=== PATIENT | male | born 1980 | race Caucasian/White ===

== ENCOUNTER 2021-11-27 00:40 | Emergency (ER) | payer SELFPAY ==
--- NOTE | ~2021-11-27 | XR_ITS ---
EXAMINATION: XR chest 2V DATE: 11/27/2021 01:21 INDICATION: Chest pain TECHNIQUE: PA and lateral views of the chest are obtained. COMPARISON: None available FINDINGS: The lungs are free of acute opacities. There is no pleural effusion or pneumothorax. The ca rdiomediastinal silhouette is normal. There is mild anterior wedging of multiple midthoracic vertebra l bodies, likely physiologic. A healed left sixth rib fracture is noted. IMPRESSION: 1. No acute cardiopulmonary abnormality. Reviewed, dictated and finalized at location A.
--- NOTE | 2021-11-27 00:47 | ECG_ITS ---
Measurements Intervals [place] Rate: 76 P: 77 MN: 133 QRS: 62 QRSD: 89 T: 59 QT: 362 QTc: 409 Interpretive Statements SINUS RHYTHM POSSIBLE LEFT ATRIAL ENLARGEMENT BORDERLINE ECG NO PREVIOUS ECG AVAILABLE FOR COMPARISON Electronically Signed On 11-27-2021 15:47:08 CDT by Rodolfo Dewitt M.D.
[2021-11-27 00:48] VITALS: BP 155/89; PULSE 75; RESP 19; TEMP 36.4; O2SAT 100
--- NOTE | 2021-11-27 00:54 | ED.CHESTPAIN ---
HPI - Chest Pain General Chief Complaint: Chest Pain Stated Complaint: chest pain Time Seen by Provider: 11/27/21 00:50 Source: patient Mode of arrival: ambulatory Limitations: no limitations History of Present Illness HPI narrative: 41-year-old male presents emergency room complaining of pain to the left side of his chest. He points to the left upper area of the chest where it hurts. States is a very sharp pain. Hurts when he moves or try to take a deep breath. States it started on Thursday, progressively worse. He has had a mild cough. He is not vaccinated for Covid. He states he has had outpatient tests which were negative. He is a smoker for 28 years. His father at age 50 and had a myocardial infarction. Patient does drink alcohol. He states he was out riding his 4 tate this weekend. However he denies any trauma or injury to his chest. No radiation of pain. Related Data Allergies Allergy/AdvReac Type Severity Reaction Status Date / Time No Known Allergies Allergy Verified 11/27/21 00:51 Review of Systems Review of Systems: CONSTITUTIONAL: Denies fever, chills, or sweats. EYES: Denies visual changes, redness, or discharge. ENT: Denies rhinorrhea, congestion, sore throat, or otalgia. CARDIOVASCULAR: Sharp left upper chest wall pain. No palpitations. No edema RESPIRATORY: Denies cough or dyspnea. GASTROINTESTINAL: Denies abdominal pain, nausea, vomiting, or diarrhea. GENITOURINARY: Denies dysuria or hematuria. SKIN: Denies rash or itching. MUSCULOSKELETAL: Denies back pain, joint pain, or myalgia. NEUROLOGIC: Denies headache, numbness, or weakness. PSYCHIATRIC: Denies anxiety or depression. REPLACED BY [facility] Family History Family History Other Heart disease Hypertension Social History Social History Smoking status: Current every day smoker Tobacco type: cigarettes Alcohol intake: current Exam Narrative: APPEARANCE: Well appearing. Mild to moderate distress secondary to pain Head normocephalic and atraumatic. EYES: PERRLA/EOMI, conjunctivae very clear. NOSE: Normal with no drainage EARS:TMS clear Betty Singer, with good light reflex. THROAT: Pharynx clear, no exudate. NECK: Supple. No adenopathy, no masses. RESPIRATORY: Airway patent, respirations nonlabored. Clear to auscultation bilaterally, no rales, rhonchi, wheezing. CARDIOVASCULAR: Regular rate and rhythm without murmurs, rubs, or gallops. Reproducible tenderness to palpation left upper chest wall ABDOMINAL: Soft, nontender, nondistended, no hepatosplenomegaly Musculoskeletal: Moves all extremities. Strength/ROM intact, No edema, No calf tenderness. NEURO: Alert. Cranial nerves II through XII intact. Normal gait. Good coordination. Nonfocal examination. SKIN:: Warm, dry. Normal Color PSYCHIATRIC: Normal affect/mood, normal interaction Course Vital Signs Vital signs: Vital Signs Temperature 97.6 F 11/27/21 00:48 Pulse Rate 75 11/27/21 00:48 Respiratory Rate 19 11/27/21 00:48 Blood Pressure 155/89 H 11/27/21 00:48 Pulse Oximetry 100 11/27/21 00:48 Temperature 97.6 F 11/27/21 00:48 Pulse Rate 75 11/27/21 00:48 Respiratory Rate 19 11/27/21 00:48 Blood Pressure 155/89 H 11/27/21 00:48 Pulse Oximetry 100 11/27/21 00:48 MDM - Chest Pain MDM Narrative Medical decision making narrative: Chest x-ray is unremarkable. No signs of any rib fractures pneumothorax or any other pathology. Laboratory work-up completely normal including a normal troponin. EKG is normal. Patient has reproducible tenderness to palpation left anterior chest wall consistent with chest wall pain. This was all explained to him. We will put him on some nonsteroidal anti-inflammatory medications to assist with this. Differential Diagnosis Differential diagnosis: Likely fracture of rib, atypical chest pain, costochondritis and chest pain
[2021-11-27 01:11] LABS: Basophils Absolute Auto 0.1 K/mm3 (0.0-0.1); Basophils Percent Auto 0.5 % (0.2-1.2); Eosinophils Absolute Auto 0.1 K/mm3 (0-0.3); Eosinophils Percent Auto 0.9 % (0-4.4); Hematocrit 47.6 % (42.0-52.0); Hemoglobin 15.8 g/dL (14.0-18.0); Immature Granulocyte Absolute 0.04 K/mm3 (0.00-0.031); Immature Granulocyte Percent A 0.4 % (0-0.5); Lymphocytes Absolute Auto 2.55 K/mm3 (0.9-3.2); Lymphocytes Percent Auto 25.8 % (18.3-44.2); Mean Corpuscular HGB Conc 33.2 g/dl (32-36); Mean Corpuscular Hemoglobin 32.5 pg (26-34); Mean Corpuscular Volume 97.9 fl (80-100); Mean Platelet Volume 9.4 fl (7.4-10.4); Monocytes Absolute Auto 0.9 K/mm3 (0.1-0.6); Monocytes Percent Auto 9.3 % (2.6-8.5); Neutrophils Absolute Auto 6.3 K/mm3 (1.3-6.7); Neutrophils Percent Auto 63.1 % (45.5-73.1); Platelet Count Result 226 k/mm3 (150-375); Red Blood Count 4.86 M/mm3 (4.6-6.20); Red Cell Distribution Width 14.3 % (11.5-14.5); White Blood Count 9.9 K/mm3 (4.5-10.0)
[2021-11-27 01:15] VITALS: PULSE 68
[2021-11-27 01:23] LABS: Alanine Aminotransferase 10 U/L (4-50); Albumin Level 4.7 g/dL (3.5-5.1); Alkaline Phosphatase 79 U/L (38-126); Anion Gap 7 mmol/L (8-16); Aspartate Amino Transferase 23 U/L (17-59); Bilirubin,Total 0.6 mg/dL (0.2-1.3); Blood Urea Nitrogen 14 mg/dL (9-20); Calcium 9.2 mg/dL (8.4-10.2); Carbon Dioxide 28 mmol/L (22-30); Chloride 104 mmol/L (98-107); Estimated CRCL calculation 89 ml/min; Estimated Glomerular Filt Rate > 60; Glucose 111 mg/dL (65-110); Lipase 69 U/L (23-300); Potassium 4.4 mmol/L (3.4-5.0); Prothrombin Time 12.9 Seconds (11.1-14.7); Sodium 139 mmol/L (137-145)
[2021-11-27 01:24] LABS: Partial Thromboplastin Time 31.4 SECONDS (22.3-36.8)
[2021-11-27 01:34] LABS: Troponin I < 0.012 ng/mL (0.000-0.034)
[2021-11-27] MEDS: ASPIRIN 81 MG CHEWABLE TABLET 324 MG PO (01:36)
[2021-11-27] MEDS: KETOROLAC 30 MG/ML VIAL (*BKC) IV PUSH (01:37)
[2021-11-27 01:42] VITALS: BP 130/73; PULSE 62; RESP 17; O2SAT 98
[2021-11-27 02:05] VITALS: BP 116/80; PULSE 78; RESP 18; O2SAT 98
== END 2021-11-27 02:08 | disposition home or self-care (01) ==
PROVIDERS: Emergency Provider Emergency Medicine
DX: R07.89 Other chest pain (principal); Z28.310 Unvaccinated for COVID-19; F17.210 Nicotine dependence, cigarettes, uncomplicated; R94.31 Abnormal electrocardiogram [ECG] [EKG]
CPT/HCPCS: 36415; 71046; 80053; 83690; 84484; 85025; 85610; 85730; 93005; 96374; 99284; A9270; J1885

== ENCOUNTER 2023-02-02 13:05 | Emergency (ER) | payer OTHER, SELFPAY ==
[2023-02-02 13:15] VITALS: BP 136/71; PULSE 73; RESP 16; TEMP 37.5; O2SAT 100
--- NOTE | 2023-02-02 13:52 | ED.UPPEXIN ---
HPI - Extremity Injury (Upper) General Chief Complaint: Extremity Injury, Upper Stated Complaint: Left Hand Pain Time Seen by Provider: 02/02/23 13:52 Source: patient Mode of arrival: ambulatory Limitations: no limitations History of Present Illness HPI narrative: 42-year-old male presented for complaint of laceration to the palm of the left hand after injury today. He states he struck the hand on a fence. He is not up-to-date on tetanus. He did not cleanse site prior to arrival. He denies decreased range of motion, numbness, tingling, weakness of the hand. Denies pain. Denies medical history but does not have PCP. Smokes 1-2 ppd Related Data Allergies Allergy/AdvReac Type Severity Reaction Status Date / Time No Known Allergies Allergy Verified 02/02/23 13:10 Review of Systems Review of Systems: CONSTITUTIONAL: Denies body aches, fever, chills, or sweats. EYES: Denies visual changes, redness, or discharge. ENT: Denies rhinorrhea, congestion CARDIOVASCULAR: Denies chest pain, palpitations, or edema. RESPIRATORY: Denies cough or dyspnea. GASTROINTESTINAL: Denies abdominal pain, nausea, vomiting, or diarrhea. SKIN: Left hand laceration MUSCULOSKELETAL: Denies back pain, joint pain, or myalgia. NEUROLOGIC: Denies headache, numbness, tingling, or weakness. [facility] Past Medical History Medical History (Updated 02/02/23 @ 14:26 by Jeimy Mcqueen APRN) No pertinent past medical history Family History Family History Other Heart disease Hypertension Social History Social History (Updated 02/02/23 @ 14:03 by Jeimy Mcqueen APRN) Smoking packs per day: 2 Smoking cigarettes per day: 40.0 Smoking status: Current every day smoker Tobacco type: cigarettes Alcohol intake: current Comments At time of signature, I have reviewed and agree with nursing past medical, surgical, social and family history unless otherwise noted. Please see nursing chart for further information. There is no relevant family history pertinent to the presenting complaint Exam Narrative: GENERAL: appears older than stated age, no distress HEAD: Normocephalic, atraumatic. EYES: conjunctivae clear, and EOMI. ENT: Mucous membranes moist. Oropharynx without edema, erythema or lesions. NECK: Supple. No lymphadenopathy CHEST: Clear to auscultation. HEART: Regular rate and rhythm. SKIN: Warm, dry. Left palm laceration approximately 0.5 cm, flap, irregular, minimal active bleeding, fat exposed. NEURO: Alert and oriented x3. Course Course Emergency Course: Patient is aware of diagnosis, understands and agrees to treatment plan. Anticipatory guidance given. Patient agrees to follow-up as directed and is aware of reasons to seek care at the emergency department. Portions of this record may have been created with voice recognition software Level of Care: Express Care Visit Vital Signs Vital signs: Vital Signs Temperature 99.5 F 02/02/23 13:15 Pulse Rate 73 02/02/23 13:15 Respiratory Rate 16 02/02/23 13:15 Blood Pressure 136/71 02/02/23 13:15 Pulse Oximetry 100 02/02/23 13:15 Oxygen Delivery Room Air 02/02/23 13:15 Temperature 99.5 F 02/02/23 13:15 Pulse Rate 73 02/02/23 13:15 Respiratory Rate 16 02/02/23 13:15 Blood Pressure 136/71 02/02/23 13:15 Pulse Oximetry 100 02/02/23 13:15 Oxygen Delivery Room Air 02/02/23 13:15 Reviewed Procedures Laceration left hand: Date: 02/02/23 Site: hand Side (If applicable): left Size (cm): 0.5 Description: flap, irregular and clean Depth: simple, single layer Amount of anesthesia used (mL): 2 Pre-repair: irrigated (50mL) ====== Skin Level ====== Skin layer closed with: nylon Size (cm): 5-0 Number of sutures: 2 Technique: simple, interrupted ====== Subcutaneous Layer ======
[2023-02-02] MEDS: TETANUS,DIPHTHERIA,AC PERTUSSIS ADULT (0.5 ML) BOOSTRIX IM (13:59)
== END 2023-02-02 14:30 | disposition home or self-care (01) ==
PROVIDERS: Emergency Provider Nurse Practitioner Family
DX: S61.412A Laceration without foreign body of left hand, initial encounter (principal); W22.8XXA Striking against or struck by other objects, initial encounter; Z23 Encounter for immunization; F17.210 Nicotine dependence, cigarettes, uncomplicated
CPT/HCPCS: 12001; 90471; 90715; 99213; G0463

== ENCOUNTER 2024-02-06 23:12 | Emergency (ER) | payer SELFPAY ==
[2024-02-06 23:22] VITALS: BP 132/55; PULSE 94; RESP 15; TEMP 37.8; O2SAT 97
--- NOTE | 2024-02-07 00:26 | ED.GENADULT ---
[facility] - General Adult General Chief complaint: Skin/Abscess/Foreign Body Stated complaint: infection on back Time Seen by Provider: 02/07/24 00:07 Source: patient Mode of arrival: ambulatory Limitations: no limitations History of Present Illness [facility] narrative: this is a 43-year-old male who presents to the ED with chief complaint of possible abscess to the left lower back/ buttock. Reports it started as a chigger bite about a week ago and has since worsened pain redness and swelling. He does state that it has been draining purulent material over the past couple of days. Endorses subjective fever and some nausea. Denies vomiting, diarrhea, abdominal pain, problems with bowel movements. Related Data Allergies Allergy/AdvReac Type Severity Reaction Status Date / Time No Known Allergies Allergy Verified 02/02/23 13:10 Review of Systems Review of Systems: All systems as dictated in [facility] Past Medical History Medical History (Updated 02/07/24 @ 01:13 by Jerry Alanis PA-C) No pertinent past medical history Family History Family History Other Heart disease Hypertension Social History Social History (Updated 02/02/23 @ 14:03 by Jeimy Patterson APRN) Smoking packs per day: 2 Smoking cigarettes per day: 40.0 Smoking status: Current every day smoker Tobacco type: cigarettes Alcohol intake: current Exam Narrative: GENERAL: Well-appearing, well-nourished, and in no acute distress. HEAD: Normocephalic, atraumatic. EYES: PERRLA and EOMI. ENT: Nares clear, no rhinorrhea or epistaxis. Mucous membranes moist. Oropharynx without tonsillar hypertrophy exudate or other lesions. NECK: Supple. No adenopathy or masses. CHEST: No respiratory distress. Clear to auscultation. No wheezes rales or rhonchi HEART: Regular rate and rhythm. No murmur heard. Normal peripheral pulses. ABDOMEN: Soft, nontender, nondistended, normal active bowel sounds. MSK: Normal range of motion. No edema. SKIN: Left lower back with 3 cm right 3 cm area of tender erythema. There is central purulent drainage. No fluctuance. Minimal induration. No midline spinal tenderness. No crepitus NEURO: Alert and oriented x4. No focal deficits. PSYCH: Normal mood and affect. Course Vital Signs Vital signs: Vital Signs Temperature 100.1 F H 02/06/24 23:22 Pulse Rate 94 02/06/24 23:22 Respiratory Rate 15 02/06/24 23:22 Blood Pressure 132/55 L 02/06/24 23:22 Pulse Oximetry 97 02/06/24 23:22 Oxygen Delivery Room Air 02/06/24 23:22 Temperature 100.1 F H 02/06/24 23:22 Pulse Rate 94 02/06/24 23:22 Respiratory Rate 15 02/06/24 23:22 Blood Pressure 132/55 L 02/06/24 23:22 Pulse Oximetry 97 02/06/24 23:22 Oxygen Delivery Room Air 02/06/24 23:22 Medical Decision Making MDM Narrative Medical decision making narrative: this is a 43-year-old male who presents to the ED with chief complaint of left lower back skin infection/abscess. Vitals show low-grade fever, but otherwise normal. Exam is remarkable for the above. The lesion is draining purulent fluid. There is no fluctuance or obvious site for further incision and drainage today. Lab work shows mild leukopenia of 4.3. CMP unremarkable. CRP slightly elevated 1.7. He is resting comfortably on Reexam. he was given Ancef here in the department. shared decision making regarding disposition and patient would like to go home if possible. We have agreed on a trial of a week of antibiotics and follow-up with PCP. Pt will be discharged in stable condition. Return precautions given and supportive measures discussed. Pt is understanding and agreeable with plan for discharge and follow-up with PCP. Vital Signs Vital Signs: Vital Signs Temperature 100.1 F H 02/06/24 23:22 Pulse Rate 94 02/06/24 23:22 Respiratory Rate 15 02/06/24 23:22 Blood Pressure 132/55 L /
[2024-02-07 00:32] LABS: Basophils Percent Auto 0.9 % (0.2-1.2); Eosinophils Percent Auto 0.2 % (0-4.4); Hematocrit 41.5 % (42.0-52.0); Hemoglobin 14.1 g/dL (14.0-18.0); Immature Granulocyte Absolute 0.01 K/mm3 (0.00-0.031); Immature Granulocyte Percent A 0.2 % (0-0.5); Lymphocytes Absolute Auto 1.02 K/mm3 (0.9-3.2); Lymphocytes Percent Auto 23.5 % (18.3-44.2); Mean Corpuscular Hemoglobin 32.7 pg (26-34); Mean Corpuscular Volume 96.3 fl (80-100); Mean Platelet Volume 9.2 fl (7.4-10.4); Monocytes Absolute Auto 0.3 K/mm3 (0.1-0.6); Monocytes Percent Auto 6.2 % (2.6-8.5); Platelet Count Result 152 k/mm3 (150-375); Red Blood Count 4.31 M/mm3 (4.6-6.20); Red Cell Distribution Width 13.9 % (11.5-14.5); White Blood Count 4.3 K/mm3 (4.5-10.0)
[2024-02-07 00:45] LABS: Alanine Aminotransferase 17 U/L (6-50); Albumin Level 4.2 g/dL (3.5-5.1); Alkaline Phosphatase 76 U/L (38-126); Anion Gap 8 mmol/L (4-12); Aspartate Amino Transferase 27 U/L (17-59); Bilirubin,Total 0.4 mg/dL (0.2-1.3); Blood Urea Nitrogen 12 mg/dL (9-20); CRP 1.7 mg/dL (<1.0); Calcium 8.9 mg/dL (8.4-10.2); Carbon Dioxide 24 mmol/L (22-30); Chloride 105 mmol/L (98-107); Estimated CRCL calculation 106 ml/min; Estimated Glomerular Filt Rate > 60; Glucose 115 mg/dL (65-110); Potassium 3.6 mmol/L (3.4-5.0); Sodium 137 mmol/L (137-145)
[2024-02-07] MEDS: ceFAZolin 1 GM/NS 50 ML 1 GM/50 ML BAG IVPB (01:13)
[2024-02-07 01:17] VITALS: BP 113/61; PULSE 67; RESP 18; O2SAT 100
[2024-02-07 01:31] VITALS: BP 108/57
== END 2024-02-07 01:45 | disposition home or self-care (01) ==
PROVIDERS: Emergency Provider Physician Assistant
DX: L03.312 Cellulitis of back [any part except buttock and flank] (principal); F17.210 Nicotine dependence, cigarettes, uncomplicated
CPT/HCPCS: 36415; 80053; 85025; 86140; 96365; 99284; J0690